=== PATIENT | female | born 1990 | race Caucasian/White ===

== ENCOUNTER 2017-08-22 04:12 | Emergency (ER) | payer OTHER, SELFPAY ==
[~2017-08-22] VITALS: Ht 160 cm; Wt 54.0 kg
[~2017-08-22 04:12] MED LIST: COLA100C5 PO; MOTR200T44 PO; PERCOCET PO
[2017-08-22 04:18] VITALS: BP 124/66
[2017-08-22] MEDS ORDERED: BUPIVACAINE HCL 0.5% 30 ML VIAL As Ordered ONE (04:44)
[2017-08-22] MEDS ORDERED: CETACAINE SPRAY 20GM (FLOOR STOCK) TOP ONE (04:45)
[2017-08-22] MEDS ORDERED: CETACAINE SPRAY 20GM (FLOOR STOCK) As Ordered ONE (04:45)
[2017-08-22] MEDS ORDERED: BUPIVACAINE/EPIN 0.5% 30 ML VIAL XX ONE (04:45)
[2017-08-22] MEDS ORDERED: CLEO150C PO (05:02)
== END 2017-08-22 05:18 | disposition home or self-care (01) ==
LOC: M ED 04:12
DX: K02.9 Dental caries, unspecified (principal); K08.89 Other specified disorders of teeth and supporting structures; F17.210 Nicotine dependence, cigarettes, uncomplicated

== ENCOUNTER 2017-09-25 18:55 | Emergency (ER) | payer SELFPAY ==
[~2017-09-25] VITALS: Ht 160 cm; Wt 54.1 kg
[~2017-09-25 18:55] MED LIST changes: +CLEO150C PO
[2017-09-25] MEDS ORDERED: CEFD1CAP8 PO (20:52)
[2017-09-25] MEDS ORDERED: IBUP-1022 PO (20:52)
[2017-09-25] MEDS ORDERED: TRAM50TA2 PO (20:52)
[2017-09-25] MEDS ORDERED: PERCOCET 5MG/325MG TAB PO ONE (21:00)
[2017-09-25 21:06] VITALS: BP 126/79
== END 2017-09-25 21:33 | disposition home or self-care (01) ==
LOC: M ED 18:55
DX: K08.89 Other specified disorders of teeth and supporting structures (principal); H69.92 Unspecified Eustachian tube disorder, left ear; Z72.0 Tobacco use

== ENCOUNTER 2017-11-08 22:33 | Emergency (ER) | payer OTHER, MEDICAID ==
[2017-11-09] MEDS: BENZONATATE 100 MG CAP PO (00:15)
== END 2017-11-09 00:32 | disposition home or self-care (01) ==
LOC: M ED 22:33
DX: B34.9 Viral infection, unspecified (principal); J40 Bronchitis, not specified as acute or chronic; F17.210 Nicotine dependence, cigarettes, uncomplicated; Z79.2 Long term (current) use of antibiotics
CPT/HCPCS: 99282

== ENCOUNTER → 2020-07-12 | Outpatient (REF) | payer OTHER ==
[~2020-07-12] MED LIST changes: +8 HO650T2 PO; +CEFD1CAP8 PO; +IBUP-1022 PO; +MUCI600T37 PO; +TESS100C PO; +TRAM50TA2 PO
== END ==
LOC: M PLALAB 14:46
PROVIDERS: ATTEND Advanced Practice Midwife
DX: O36.80X0 Pregnancy with inconclusive fetal viability, not applicable or unspecified (principal)

== ENCOUNTER → 2020-07-12 | Outpatient (CLI) | payer OTHER | LOC: M LAB 15:01 | PROVIDERS: ATTEND Obstetrics & Gynecology | DX: O36.80X0 Pregnancy with inconclusive fetal viability, not applicable or unspecified (principal); Z3A.00 Weeks of gestation of pregnancy not specified ==

== ENCOUNTER → 2020-07-14 | Outpatient (CLI) | payer OTHER ==
[2020-07-14 16:31] LABS: HCG, SERUM QUALITATIVE POSITIVE (NEGATIVE)
[2020-07-14 16:47] LABS: HCG, SERUM QUANTITATIVE 7721 MIU/ML
== END ==
LOC: M LAB 15:04
PROVIDERS: ATTEND Obstetrics & Gynecology
DX: O36.80X0 Pregnancy with inconclusive fetal viability, not applicable or unspecified (principal); Z3A.00 Weeks of gestation of pregnancy not specified

== ENCOUNTER → 2021-11-14 | Outpatient (CLI) | payer OTHER ==
[~2021-11-14] MED LIST changes: -CEFD1CAP8 PO; +CEFD300C41 PO
[2021-11-14 17:30] LABS: BASO % 0.2 % (0.0-1.0); EOS # 0.1 10^3/uL (0.0-0.5); EOS % 0.6 % (0.0-3.0); HEMATOCRIT 36.6 % (36.0-47.0); LYMPH # 2.4 10^3/uL (1.5-5.0); LYMPH % 22.7 % (24.0-44.0); MEAN CORPUSCULAR HEMOGLOBIN 30.2 pg (27.0-33.0); MEAN CORPUSCULAR HGB CONC 32.8 g/dl (32.0-36.5); MEAN CORPUSCULAR VOLUME 92.2 fl (80.0-96.0); MONO % 9.2 % (2.0-8.0); NEUTROPHILS # 7.1 10^3/uL (1.5-8.5); NEUTROPHILS % 66.8 % (36.0-66.0); PLATELET COUNT, AUTOMATED 314 10^3/uL (150-450); RED BLOOD COUNT 3.97 10^6/uL (4.00-5.40); WHITE BLOOD COUNT 10.6 10^3/uL (4.0-10.0)
[2021-11-14 19:28] LABS: GC DNA AMPLIFICATION NEGATIVE (NEGATIVE)
[2021-11-15 09:30] LABS: HEPATITIS C VIRUS ABY INDEX 0.1 INDEX (<0.8); HIV 1&2 SCREEN CENTAUR NEGATIVE (NEGATIVE)
== END ==
LOC: M PLALAB 15:03
PROVIDERS: ATTEND Obstetrics & Gynecology
DX: Z36.89 Encounter for other specified antenatal screening (principal)

== ENCOUNTER → 2021-12-18 | Outpatient (CLI) | payer OTHER | LOC: M WHC 08:34 | PROVIDERS: ATTEND Advanced Practice Midwife | DX: Z53.9 Procedure and treatment not carried out, unspecified reason (principal) ==

== ENCOUNTER → 2022-01-24 | Outpatient (CLI) | payer OTHER | LOC: M WHC 10:11 | PROVIDERS: ATTEND Advanced Practice Midwife | DX: O34.219 Maternal care for unspecified type scar from previous cesarean delivery (principal); Z3A.20 20 weeks gestation of pregnancy ==

== ENCOUNTER 2022-03-04 16:24 | Outpatient (CLI) | payer OTHER ==
[~2022-03-04] VITALS: Ht 160 cm; Wt 56.3 kg
[2022-03-04 16:37] VITALS: BP 111/56
[2022-03-04] MEDS ORDERED: PRENTAB9 PO (16:46)
[2022-03-04] MEDS ORDERED: HOME MED LIST COMPLETE! XX SCH (16:50)
[2022-03-04] MEDS ORDERED: LR 1,000 ML IV SCH (17:00)
[2022-03-04] MEDS ORDERED: LACTATED RINGER'S 1000 ML IV ONE (17:00)
[2022-03-04 17:47] VITALS: BP 109/60
[2022-03-04 18:14] LABS: HEMATOCRIT 34.1 % (36.0-47.0); HEMOGLOBIN 11.4 g/dl (12.0-15.5); MEAN CORPUSCULAR HEMOGLOBIN 31.3 pg (27.0-33.0); MEAN CORPUSCULAR HGB CONC 33.4 g/dl (32.0-36.5); MEAN CORPUSCULAR VOLUME 93.7 fl (80.0-96.0); PLATELET COUNT, AUTOMATED 278 10^3/uL (150-450); RED BLOOD COUNT 3.64 10^6/uL (4.00-5.40); WHITE BLOOD COUNT 13.4 10^3/uL (4.0-10.0)
[2022-03-04] MEDS ORDERED: ACETAMINOPHEN 500 MG TAB PO ONE (19:00)
[2022-03-04 20:39] VITALS: BP 101/56
== END 2022-03-04 20:40 | disposition home or self-care (01) ==
LOC: M LDO 16:24
PROVIDERS: ATTEND Obstetrics & Gynecology
DX: O9A.219 Injury, poisoning and certain other consequences of external causes complicating pregnancy, unspecified trimester (principal); S20.212A Contusion of left front wall of thorax, initial encounter; W01.0XXA Fall on same level from slipping, tripping and stumbling without subsequent striking against object, initial encounter; Y92.9 Unspecified place or not applicable

== ENCOUNTER → 2022-03-28 | Outpatient (CLI) | payer OTHER ==
[~2022-03-28] MED LIST changes: +PRENTAB9 PO
== END ==
LOC: M WHC 08:10
PROVIDERS: ATTEND Obstetrics & Gynecology
DX: Z36.2 Encounter for other antenatal screening follow-up (principal); Z3A.30 30 weeks gestation of pregnancy

== ENCOUNTER 2022-03-29 13:02 | Outpatient (CLI) | payer OTHER ==
[~2022-03-29] VITALS: Ht 160 cm; Wt 59.5 kg
[2022-03-29 13:26] VITALS: BP 114/65
[2022-03-29 14:36] VITALS: BP 132/72
[2022-03-29 15:42] VITALS: BP 104/51
[2022-03-29 15:50] LABS: APPEARANCE, URINE CLEAR (CLEAR); BACTERIA, URINE AUTO NEGATIVE (NEGATIVE); BILIRUBIN, URINE AUTO NEGATIVE (NEGATIVE); BLOOD, URINE BLOOD 1+ (NEGATIVE); COLOR, URINE STRAW (YELLOW); GLUCOSE, URINE (UA) AUTO NEGATIVE (NEGATIVE); KETONE, URINE AUTO NEGATIVE (NEGATIVE); LEUKOCYTE ESTERASE, URINE AUTO NEGATIVE (NEGATIVE); NITRITE, URINE AUTO NEGATIVE (NEGATIVE); PROTEIN, URINE AUTO NEGATIVE (NEGATIVE); RBC, URINE AUTO 0 /HPF (0-3); SPECIFIC GRAVITY URINE AUTO 1.001 (1.002-1.035); SQUAMOUS EPITHELIAL CELL UR AU 0 /HPF (0-6); UROBILINOGEN, URINE AUTO 0.2 mg/dL (0.0-2.0); WBC, URINE AUTO 0 /HPF (0-3)
== END 2022-03-29 16:30 | disposition home or self-care (01) ==
LOC: M LDO 13:02
PROVIDERS: ATTEND Specialist
DX: O36.5939 Maternal care for other known or suspected poor fetal growth, third trimester, other fetus (principal); O60.03 Preterm labor without delivery, third trimester; Z3A.30 30 weeks gestation of pregnancy

== ENCOUNTER → 2022-04-04 | Outpatient (CLI) | payer OTHER | LOC: M WHC 13:02 | PROVIDERS: ATTEND Advanced Practice Midwife | DX: Z36.2 Encounter for other antenatal screening follow-up (principal); O36.5930 Maternal care for other known or suspected poor fetal growth, third trimester, not applicable or unspecified; Z3A.31 31 weeks gestation of pregnancy ==

== ENCOUNTER → 2022-04-04 | Outpatient (CLI) | payer OTHER ==
[2022-04-04 18:44] LABS: HEMATOCRIT 36.9 % (36.0-47.0); HEMOGLOBIN 12.2 g/dl (12.0-15.5); MEAN CORPUSCULAR HEMOGLOBIN 32.1 pg (27.0-33.0); MEAN CORPUSCULAR HGB CONC 33.1 g/dl (32.0-36.5); MEAN CORPUSCULAR VOLUME 97.1 fl (80.0-96.0); PLATELET COUNT, AUTOMATED 318 10^3/uL (150-450); WHITE BLOOD COUNT 13.7 10^3/uL (4.0-10.0)
== END ==
LOC: M PLALAB 14:29
PROVIDERS: ATTEND Advanced Practice Midwife
DX: Z36.89 Encounter for other specified antenatal screening (principal)

== ENCOUNTER → 2022-04-11 | Outpatient (CLI) | payer OTHER | LOC: M WHC 10:45 | PROVIDERS: ATTEND Advanced Practice Midwife | DX: Z36.3 Encounter for antenatal screening for malformations (principal); O36.5930 Maternal care for other known or suspected poor fetal growth, third trimester, not applicable or unspecified; Z3A.32 32 weeks gestation of pregnancy ==

== ENCOUNTER 2022-04-13 16:41 | Outpatient (CLI) | payer OTHER ==
[~2022-04-13] VITALS: Ht 160 cm; Wt 62.0 kg
[2022-04-13] MEDS ORDERED: HOME MED LIST COMPLETE! XX SCH (17:00)
[2022-04-13 17:08] VITALS: BP 102/58
[2022-04-13 18:08] LABS: AMPHETAMINES URINE REFLEX NEGATIVE (NEGATIVE); BARBITURATES URINE REFLEX NEGATIVE (NEGATIVE); BENZODIAZEPINES URINE REFLEX NEGATIVE (NEGATIVE); COCAINE METABOLITE URINE REFLE NEGATIVE (NEGATIVE); METHADONE URINE REFLEX NEGATIVE (NEGATIVE); OPIATES URINE REFLEX NEGATIVE (NEGATIVE); PHENCYCLIDINE URINE REFLEX NEGATIVE (NEGATIVE)
[2022-04-13 18:10] LABS: CANNABINOIDS URINE REFLEX PENDING CONFIRMATION (NEGATIVE)
== END 2022-04-13 18:33 | disposition home or self-care (01) ==
LOC: M LDO 16:41
PROVIDERS: ATTEND Specialist
DX: O36.8330 Maternal care for abnormalities of the fetal heart rate or rhythm, third trimester, not applicable or unspecified (principal); O36.5930 Maternal care for other known or suspected poor fetal growth, third trimester, not applicable or unspecified; Z3A.32 32 weeks gestation of pregnancy
CPT/HCPCS: 59025; 80307; G0480

== ENCOUNTER → 2022-04-16 | Outpatient (CLI) | payer OTHER | LOC: M WHC 13:37 | PROVIDERS: ATTEND Advanced Practice Midwife | DX: O36.5930 Maternal care for other known or suspected poor fetal growth, third trimester, not applicable or unspecified (principal); Z3A.32 32 weeks gestation of pregnancy ==

== ENCOUNTER → 2022-04-23 | Outpatient (CLI) | payer OTHER | LOC: M WHC 14:30 | PROVIDERS: ATTEND Advanced Practice Midwife | DX: O36.5930 Maternal care for other known or suspected poor fetal growth, third trimester, not applicable or unspecified (principal); Z3A.00 Weeks of gestation of pregnancy not specified ==

== ENCOUNTER → 2022-04-30 | Outpatient (CLI) | payer OTHER | LOC: M WHC 14:26 | PROVIDERS: ATTEND Advanced Practice Midwife | DX: O36.5930 Maternal care for other known or suspected poor fetal growth, third trimester, not applicable or unspecified (principal); Z3A.35 35 weeks gestation of pregnancy ==

== ENCOUNTER → 2022-05-04 | Outpatient (REF) | payer OTHER | LOC: M PLALAB 12:33 | PROVIDERS: ATTEND Advanced Practice Midwife | DX: O36.5930 Maternal care for other known or suspected poor fetal growth, third trimester, not applicable or unspecified (principal) ==

== ENCOUNTER 2022-05-05 17:54 | Outpatient (CLI) | payer OTHER ==
[~2022-05-05] VITALS: Ht 160 cm; Wt 64.6 kg
[2022-05-05] MEDS ORDERED: BETAMETHASONE SOLUSPAN 6MG/ML 5ML VIAL (J0702 PER 3MG) IM SCH (18:15)
[2022-05-05 18:34] VITALS: BP 118/59
[2022-05-05] MEDS ORDERED: HOME MED LIST COMPLETE! XX SCH (18:35)
[2022-05-05 20:16] VITALS: BP 131/67
== END 2022-05-05 20:25 | disposition home or self-care (01) ==
LOC: M LDO 17:54
PROVIDERS: ATTEND Obstetrics & Gynecology
DX: O36.5930 Maternal care for other known or suspected poor fetal growth, third trimester, not applicable or unspecified (principal); Z3A.35 35 weeks gestation of pregnancy; O34.219 Maternal care for unspecified type scar from previous cesarean delivery
CPT/HCPCS: 59025; 96372; J0702

== ENCOUNTER → 2022-05-07 | Outpatient (CLI) | payer OTHER | LOC: M WHC 14:31 | PROVIDERS: ATTEND Advanced Practice Midwife | DX: O36.5930 Maternal care for other known or suspected poor fetal growth, third trimester, not applicable or unspecified (principal); Z3A.33 33 weeks gestation of pregnancy ==

== ENCOUNTER 2022-05-11 03:04 | Inpatient (IN) | payer OTHER ==
[~2022-05-11] VITALS: Ht 160 cm; Wt 66.6 kg
[2022-05-11] VITALS (32 sets, daily range): BP systolic 97–155; BP diastolic 55–89
[2022-05-11] MEDS ORDERED: LACTATED RINGER'S 1000 ML IV STA (03:55)
[2022-05-11] MEDS ORDERED: OXYTOCIN DRIP 30 UNITS in IV 1 EA IV PRN ×4 (03:55)
[2022-05-11] MEDS ORDERED: CARBOPROST TROMETHAMINE 250 MCG/ML AMP IM PRN (03:55)
[2022-05-11] MEDS ORDERED: METHYLERGONOVINE MALEATE 0.2 MG/ML VIAL (J2210) IM PRN (03:55)
[2022-05-11] MEDS ORDERED: TRANEXAMIC ACID INJection 1,000 MG in NS 100 ML IV PRN (03:55)
[2022-05-11 04:18] LABS: HEMATOCRIT 36.1 % (36.0-47.0); HEMOGLOBIN 12.3 g/dl (12.0-15.5); MEAN CORPUSCULAR HEMOGLOBIN 31.8 pg (27.0-33.0); MEAN CORPUSCULAR HGB CONC 34.1 g/dl (32.0-36.5); MEAN CORPUSCULAR VOLUME 93.3 fl (80.0-96.0); PLATELET COUNT, AUTOMATED 330 10^3/uL (150-450); RED BLOOD COUNT 3.87 10^6/uL (4.00-5.40); WHITE BLOOD COUNT 21.7 10^3/uL (4.0-10.0)
[2022-05-11] MEDS ORDERED: FENTANYL 2MCG/ML ROPIVACAINE 0.2% IN 0.9% NACL 100ML IVBAG As Ordered ONE (04:58)
[2022-05-11] MEDS ORDERED: EPIDURAL/PCA KEYS XX PRN (05:30)
[2022-05-11] MEDS ORDERED: LR 500 ML IV PRN (05:30)
[2022-05-11] MEDS ORDERED: diphenhydrAMINE 50MG/ML VIAL (J1200) IV PRN (05:30)
[2022-05-11] MEDS ORDERED: FENTANYL/ROPIVACAINE/NACL BAG 100 ML EPIDURAL SCH (05:30)
[2022-05-11] MEDS ORDERED: ONDANSETRON 4MG 2ML VIAL IV PRN (05:30)
[2022-05-11] MEDS ORDERED: NALOXONE INJ 0.4MG/1ML VIAL (J2310 PER 1MG) IV PRN (05:30)
[2022-05-11] MEDS ORDERED: ePHEDrine SULFATE 25 MG/5 ML(5MG/ML) SYRINGE IVP PRN (05:30)
[2022-05-11] MEDS ORDERED: LR 1,000 ML IV SCH (10:05)
[2022-05-11] MEDS ORDERED: ACETAMINOPHEN TAB 650MG DOSE (2X325MG) PO PRN (13:25)
[2022-05-11] MEDS ORDERED: DOCUSATE SODIUM 100MG CAPSULE PO PRN (13:25)
[2022-05-11] MEDS ORDERED: RHOGAM 300 MCG (1500 IU) INJ (J2790) IM SCH (13:25)
[2022-05-11] MEDS ORDERED: DIBUCAINE 1% OINTMENT 30GM TOP PRN (13:25)
[2022-05-11] MEDS ORDERED: METHYLERGONOVINE MALEATE 0.2 MG TAB PO PRN (13:25)
[2022-05-11] MEDS ORDERED: IBUPROFEN 600MG TAB PO PRN (13:25)
[2022-05-11] MEDS ORDERED: OXYTOCIN DRIP 30 UNITS in IV 1 EA IV SCH (13:25)
[2022-05-11] MEDS: IBUPROFEN 800 MG TAB PO PRN (18:38)
[2022-05-12] MEDS: ACETAMINOPHEN 500 MG TAB PO PRN ×3 (02:18→17:28)
[2022-05-12 06:00] VITALS: BP 118/54
[2022-05-12] MEDS: PRENATAL VITAMINS CHEWABLE TABLET PO SCH (09:46)
[2022-05-12] MEDS: IBUPROFEN 800 MG TAB PO PRN ×2 (14:38→22:46)
[2022-05-12 17:49] VITALS: BP 159/75
[2022-05-13 06:00] VITALS: BP 139/77
[2022-05-13] MEDS: PRENATAL VITAMINS CHEWABLE TABLET PO SCH (08:30)
[2022-05-13] MEDS: IBUPROFEN 800 MG TAB PO PRN (08:31)
[2022-05-13] MEDS ORDERED: MEASLES,MUMPS,RUBELLA VACCINE INJ (MMR-II) (90707) SC.IMMUN ONE (09:00)
== END 2022-05-13 12:43 | disposition home or self-care (01) | DRG 560 ==
LOC: M LDO 03:04 → M LDI 03:54 → M OBS 15:21
PROVIDERS: ADMIT Obstetrics & Gynecology; ATTEND Advanced Practice Midwife
PROC: 10E0XZZ Delivery of Products of Conception, External Approach (ICD-10-PCS; principal; 2022-05-11)
DX: O60.13X0 Preterm labor second trimester with preterm delivery third trimester, not applicable or unspecified (principal); O36.5930 Maternal care for other known or suspected poor fetal growth, third trimester, not applicable or unspecified; O34.211 Maternal care for low transverse scar from previous cesarean delivery; O99.334 Smoking (tobacco) complicating childbirth; F17.200 Nicotine dependence, unspecified, uncomplicated; Z37.0 Single live birth